=== PATIENT | female | born 1950 | race African-American/Black ===

== ENCOUNTER 2017-04-05 02:01 | Emergency (ER) | payer MEDICARE, OTHER ==
[~2017-04-05] VITALS: Ht 160 cm; Wt 54.5 kg
[2017-04-05 09:35] VITALS: BP 134/95
== END 2017-04-05 09:53 | disposition home or self-care (01) ==
LOC: EMS 02:05
DX: M79.604 Pain in right leg (principal); M79.605 Pain in left leg; G89.29 Other chronic pain
CPT/HCPCS: 99283